=== PATIENT | female | born 1990 | race Caucasian/White ===

== ENCOUNTER → 2022-11-16 | Outpatient (CLI) | payer OTHER ==
--- NOTE | 2022-11-17 07:34 | USB ---
Reason for Exam: Clinical finding. Technique: Method: Whole Breast Handheld. Findings: The whole breast of the left breast, the area of palpable concern of the left breast, the axilla of the left breast and the retroareolar of the left breast were scanned. A complete US of all four quadrants of the breast and retro-areolar and axillary region were reviewed. There is a 9 x 4 x 9 mm oval avascular well-defined hypoechoic mass at 3:00 position 6 cm distance from nipple at site of palpable abnormality. Technologist also identifies a larger benign appearing thin-walled cyst measuring 2.0 cm long axis at 11:00 position 4 cm distance from nipple during scanning. Overall Assessment: Probably benign, BI-RAD 3 Management: Screening Mammogram of both breasts at age 38. Surgical Consultation of the left breast. Palpable lesions under 2.0 cm in size favors fibroadenoma. Advise surgical consultation to discuss management options. Sampling can be performed to confirm if desired. Ultrasound monitoring for follow-up also can be performed. Electronically signed and approved by: Thanh Lemus M.D.
== END | disposition home or self-care (01) ==
LOC: RADUSWWP 15:54
PROVIDERS: ATTEND Family Medicine
DX: N63.20 Unspecified lump in the left breast, unspecified quadrant (principal)